=== PATIENT | female | born 1940 | race Caucasian/White ===

== ENCOUNTER 2017-06-15 11:13 | Observation (INO) ==
[2017-06-15 13:40] LABS: Basophils % 0.8 % (0.0-0.8); Eosinophils # 0.1 10*3/uL (0.0-0.87); Eosinophils % 1.2 % (0.00-10.9); Hematocrit 39.8 VOL% (35.7-47.0); Hemoglobin 13.6 GM/DL (12.0-16.0); Immature Granulocytes % 0.2 %; Immature Granulocytes Absolute 0.01 #; Lymphocytes # 1.9 10*3/uL (1.4-4.0); Mean Corpuscular HGB Conc 34.2 GM/DL (32-36); Mean Corpuscular Hemoglobin 36 PG (27-34); Mean Corpuscular Volume 104.2 FL (87-102); Mean Platelet Volume 9.9 FL (9.6-12.0); Monocytes # 0.3 10*3/uL (0.11-0.8); Monocytes % 6.2 % (1.7-12.7); Neutrophils # 2.5 10*3/uL (1.4-7.4); Neutrophils % 51.6 % (38.7-73.9); Platelet Count 221 T/CUMM (130-400); Red Blood Count 3.82 MC/CUMM (3.8-5.5); White Blood Count 4.8 T/CUMM (4-12)
[2017-06-15 13:47] LABS: INR 1.2; PT Patient Result 12.2 SECS; Partial Thromboplastin Time 30.1 SECS (0-40)
[2017-06-15 14:15] LABS: Albumin 3.6 G/DL (3.4-5.0); Bilirubin,Total 0.8 MG/DL (0.2-1.0); Calcium 8.5 MG/DL (8.5-10.1); Osmolality,Calculated 275.8 MOS/KG (273-304); Potassium 3.9 MMOL/L (3.5-5.1); Total Protein 7.1 G/DL (6.4-8.3)
[2017-06-15 14:16] LABS: Troponin I Only 0.027 NG/ML (0.00-0.045)
[2017-06-15] MEDS ORDERED: FUROSEMIDE 40 MG/4 ML VIAL IV STA (14:43)
[2017-06-15 16:19] LABS: Apearance,Urine CLEAR (Clear); Bilirubin,Urine Negative (Negative); Blood, Urine Small mg/dL (Negative); Glucose,Urine (UA) Negative (Negative); Ketones,Urine Negative (Negative); Nitrite,Urine Negative (Negative); Protein,Urine Negative; RBC,Urine <1 /HPF (0-4); Squamous Epithelial Cell,Urine Occasional /HPF (0-10); Urine Color Colorless (Yellow); Urine Specific Gravity 1.003 (1.001-1.035); Urine Urobilinogen < 2.0 EU/DL (0.2-1.0); WBC,Urine <1 /HPF (0-6)
[2017-06-15] MEDS ORDERED: ZALEPLON 5 MG CAPSULE PO PRN (17:10)
[2017-06-15] MEDS ORDERED: POTASSIUM CHLORIDE 20 MEQ TABLET PO PRN (17:10)
[2017-06-15] MEDS ORDERED: guaiFENesin/DM ER 600-30 MG TABLET PO PRN (17:10)
[2017-06-15] MEDS ORDERED: MAGNESIUM SULF RIDER 4 GM in PREMIX 1 EACH IV PRN (17:10)
[2017-06-15] MEDS ORDERED: MAGNESIUM SULF RIDER 2 GM in PREMIX 1 EACH IV PRN (17:10)
[2017-06-15] MEDS ORDERED: DOCUSATE SODIUM 100 MG CAPSULE PO PRN (17:10)
[2017-06-15] MEDS ORDERED: ONDANSETRON 4 MG/2 ML VIAL IV PRN (17:10)
[2017-06-15] MEDS ORDERED: ACETAMINOPHEN 325 MG TABLET PO PRN (17:10)
[2017-06-15] MEDS ORDERED: diphenhydrAMINE CAP 25 MG CAPSULE PO PRN (17:10)
[2017-06-15] MEDS ORDERED: LACTULOSE 20 GM/30 ML UDCUP PO PRN (17:10)
[2017-06-15] MEDS ORDERED: AMIODARONE INJ 450 MG in DEXTROSE 5% 241 ML IV SCH (17:30)
[2017-06-15 20:13] LABS: Troponin I Only 0.032 NG/ML (0.00-0.045)
[2017-06-15] MEDS: APIXABAN 5 MG TABLET PO SCH (20:47)
[2017-06-15] MEDS: FOLIC ACID 1 MG TABLET PO SCH (20:47)
[2017-06-15] MEDS: CHOLECALCIFEROL 400 UNIT TABLET PO SCH (20:47)
[2017-06-15] MEDS: FLUoxetine 20 MG CAPSULE PO SCH (20:47)
[2017-06-16] MEDS: AMIODARONE INJ 450 MG in DEXTROSE 5% 241 ML IV SCH ×2 (02:45→16:39)
[2017-06-16 05:15] LABS: Basophils # 0.1 10*3/uL (0.0-0.2); Basophils % 1.1 % (0.0-0.8); Eosinophils # 0.1 10*3/uL (0.0-0.87); Eosinophils % 1.7 % (0.00-10.9); Hematocrit 41.1 VOL% (35.7-47.0); Hemoglobin 13.3 GM/DL (12.0-16.0); Immature Granulocytes % 0.4 %; Immature Granulocytes Absolute 0.02 #; Lymphocytes # 1.9 10*3/uL (1.4-4.0); Lymphocytes % 34.3 % (21.3-54.2); Mean Corpuscular HGB Conc 32.4 GM/DL (32-36); Mean Corpuscular Hemoglobin 35 PG (27-34); Mean Corpuscular Volume 107.6 FL (87-102); Mean Platelet Volume 10.6 FL (9.6-12.0); Monocytes # 0.5 10*3/uL (0.11-0.8); Monocytes % 9.6 % (1.7-12.7); Neutrophils # 2.9 10*3/uL (1.4-7.4); Neutrophils % 52.9 % (38.7-73.9); Platelet Count 201 T/CUMM (130-400); Red Blood Count 3.82 MC/CUMM (3.8-5.5); Red Cell Distribution Width 14.1 % (9.3-17.3); White Blood Count 5.4 T/CUMM (4-12)
[2017-06-16 05:49] LABS: Calcium 8.6 MG/DL (8.5-10.1); Osmolality,Calculated 280.5 MOS/KG (273-304); Potassium 3.6 MMOL/L (3.5-5.1)
[2017-06-16] MEDS: LEVOTHYROXINE 150 MCG TABLET PO SCH ×2 (06:24→10:11)
[2017-06-16 08:50] LABS: Troponin I Only 0.031 NG/ML (0.00-0.045)
[2017-06-16] MEDS ORDERED: FUROSEMIDE 40 MG/4 ML VIAL IV SCH (09:00)
[2017-06-16] MEDS: CHOLECALCIFEROL 400 UNIT TABLET PO SCH ×2 (10:12→21:50)
[2017-06-16] MEDS: FLUoxetine 20 MG CAPSULE PO SCH ×2 (10:12→21:50)
[2017-06-16] MEDS: APIXABAN 5 MG TABLET PO SCH ×2 (10:12→21:50)
[2017-06-16] MEDS: PANTOPRAZOLE 40 MG TABLET PO SCH (10:13)
[2017-06-16] MEDS: FOLIC ACID 1 MG TABLET PO SCH ×2 (10:13→21:50)
[2017-06-16] MEDS ORDERED: MIDAZOLAM 10 MG/2 ML VIAL ONE (13:11)
[2017-06-16] MEDS ORDERED: MEPERIDINE 50 MG/1 ML VIAL ONE (13:12)
[2017-06-16] MEDS: METOPROLOL SUCCINATE XL 25 MG TABLET PO SCH (18:10)
[2017-06-16] MEDS: AMIODARONE 200 MG TABLET PO SCH (18:46)
[2017-06-17 05:01] LABS: Basophils # 0.1 10*3/uL (0.0-0.2); Basophils % 0.9 % (0.0-0.8); Eosinophils # 0.1 10*3/uL (0.0-0.87); Hematocrit 40.9 VOL% (35.7-47.0); Hemoglobin 13.7 GM/DL (12.0-16.0); Immature Granulocytes % 0.2 %; Immature Granulocytes Absolute 0.01 #; Lymphocytes # 2.2 10*3/uL (1.4-4.0); Mean Corpuscular HGB Conc 33.5 GM/DL (32-36); Mean Corpuscular Hemoglobin 35 PG (27-34); Mean Corpuscular Volume 104.3 FL (87-102); Mean Platelet Volume 10.7 FL (9.6-12.0); Monocytes # 0.6 10*3/uL (0.11-0.8); Monocytes % 10.3 % (1.7-12.7); Neutrophils # 2.5 10*3/uL (1.4-7.4); Neutrophils % 45.6 % (38.7-73.9); Platelet Count 218 T/CUMM (130-400); Red Blood Count 3.92 MC/CUMM (3.8-5.5); White Blood Count 5.4 T/CUMM (4-12)
[2017-06-17 05:37] LABS: Calcium 8.9 MG/DL (8.5-10.1); Magnesium 2.1 MG/DL (1.8-2.4); Osmolality,Calculated 277.8 MOS/KG (273-304); Potassium 3.6 MMOL/L (3.5-5.1)
[2017-06-17] MEDS: AMIODARONE INJ 450 MG in DEXTROSE 5% 241 ML IV SCH (06:20)
[2017-06-17] MEDS ORDERED: LEVOTHYROXINE 75 MCG TABLET PO SCH (06:30)
[2017-06-17 08:44] VITALS: BP 123/86
[2017-06-17] MEDS: METOPROLOL SUCCINATE XL 25 MG TABLET PO SCH (08:59)
[2017-06-17] MEDS: PANTOPRAZOLE 40 MG TABLET PO SCH (09:00)
[2017-06-17] MEDS ORDERED: FUROSEMIDE 80 MG TABLET PO SCH (09:00)
[2017-06-17] MEDS: AMIODARONE 200 MG TABLET PO SCH (09:00)
[2017-06-17] MEDS: APIXABAN 5 MG TABLET PO SCH (09:00)
== END 2017-06-17 10:50 | disposition home or self-care (01) ==
LOC: N.EDINP 11:13 → N.ED 11:13 → N.TELEN 18:39
PROVIDERS: ADMIT Internal Medicine Cardiovascular Disease; ATTEND Internal Medicine Cardiovascular Disease

== ENCOUNTER 2018-05-15 15:48 | Inpatient (IN) ==
[2018-05-15] MEDS ORDERED: PANTOPRAZOLE INJ 80 MG in SODIUM CHLORIDE 0.9% 100 ML IV STA (16:10)
[2018-05-15] MEDS ORDERED: SODIUM CHLORIDE 0.9% 2,000 ML IV STA (16:10)
[2018-05-15] MEDS ORDERED: SODIUM CHLORIDE 0.9% 1,000 ML IV PRN (16:14)
[2018-05-15 16:17] LABS: Basophils % 0.2 % (0.0-0.8); Eosinophils % 0.5 % (0.00-10.9); Hematocrit 46.4 VOL% (35.7-47.0); Hemoglobin 15.5 GM/DL (12.0-16.0); Immature Granulocytes % 0.5 %; Immature Granulocytes Absolute 0.02 #; Lymphocytes # 0.5 10*3/uL (1.4-4.0); Lymphocytes % 11.9 % (21.3-54.2); Mean Corpuscular HGB Conc 33.4 GM/DL (32-36); Mean Corpuscular Hemoglobin 35 PG (27-34); Mean Corpuscular Volume 105.5 FL (87-102); Mean Platelet Volume 10.4 FL (9.6-12.0); Monocytes # 0.4 10*3/uL (0.11-0.8); Monocytes % 8.4 % (1.7-12.7); Neutrophils # 3.4 10*3/uL (1.4-7.4); Neutrophils % 78.5 % (38.7-73.9); Platelet Count 141 T/CUMM (130-400); Red Cell Distribution Width 13.5 % (9.3-17.3); White Blood Count 4.3 T/CUMM (4-12)
[2018-05-15 16:24] LABS: INR 1.2; PT Patient Result 12.3 SECS; Partial Thromboplastin Time 24.9 SECS (0-40)
[2018-05-15] MEDS ORDERED: PANTOPRAZOLE 40 MG VIAL IV ONE (16:31)
[2018-05-15 16:35] LABS: Albumin 4.1 G/DL (3.4-5.0); Bilirubin,Total 1.2 MG/DL (0.2-1.0); Calcium 8.9 MG/DL (8.5-10.1); Osmolality,Calculated 276.1 MOS/KG (273-304); Potassium 3.7 MMOL/L (3.5-5.1); Total Protein 7.4 G/DL (6.4-8.3)
[2018-05-15] MEDS ORDERED: ALBUTEROL 2.5 MG/3 ML NEB RESP TX PRN (17:15)
[2018-05-15] MEDS ORDERED: ACETAMINOPHEN 325 MG TABLET PO PRN (17:15)
[2018-05-15] MEDS ORDERED: cefTRIAXone 1,000 MG in SODIUM CHLORIDE 0.9% 100 ML IV STA (17:21)
[2018-05-15] MEDS ORDERED: SODIUM CHLORIDE 0.9% 1,000 ML IV SCH (17:30)
[2018-05-15 18:04] LABS: Band Neutrophils 13 % (0-10); Eosinophils 1 % (0-10); Lymphocytes 13 % (20-55); Segmented Neutrophils 61 % (50-85); Total Cells Counted 100
[2018-05-15 18:05] LABS: Macrocytosis 1+
[2018-05-15 18:06] LABS: Platelet Estimate Adequate
[2018-05-15 18:07] LABS: Reactive Lymphocytes Few; Smudge Cells Few
[2018-05-15 19:25] LABS: Apearance,Urine CLEAR (Clear); Bacteria,Urine Occasional /HPF (Few); Bilirubin,Urine Negative (Negative); Blood, Urine Negative (Negative); Glucose,Urine (UA) Negative (Negative); Hyaline Casts,Urine 3 /LPF (0-3); Ketones,Urine Negative (Negative); Mucus,Urine Occasional /LPF (Occasional); Nitrite,Urine Negative (Negative); Protein,Urine Negative; RBC,Urine <1 /HPF (0-4); Squamous Epithelial Cell,Urine Occasional /HPF (0-10); Urine Color Yellow (Yellow); Urine Specific Gravity 1.008 (1.001-1.035); Urine Urobilinogen < 2.0 EU/DL (0.2-1.0)
[2018-05-15] MEDS ORDERED: AZITHROMYCIN INJ 500 MG in SODIUM CHLORIDE 0.9% 250 ML IV SCH (20:00)
[2018-05-15] MEDS ORDERED: PIPERACILLIN/TAZOBACTAM 3,375 MG in SODIUM CHLORIDE 0.9% 100 ML IV SCH (20:00)
[2018-05-15] MEDS ORDERED: FLUoxetine 20 MG CAPSULE PO SCH (21:00)
[2018-05-15] MEDS ORDERED: FOLIC ACID 0.4 MG TABLET PO SCH (21:00)
[2018-05-15] MEDS ORDERED: ASPIRIN EC 81 MG TABLET PO SCH (21:00)
[2018-05-15 21:16] LABS: Hematocrit 44.5 VOL% (35.7-47.0); Hemoglobin 14.3 GM/DL (12.0-16.0)
[2018-05-15] MEDS ORDERED: NOREPINEPHRINE 4 MG/4 ML VIAL IV ONE ×2 (21:31→21:39)
[2018-05-15] MEDS: ONDANSETRON 4 MG/2 ML VIAL IV PRN (21:38)
[2018-05-15] MEDS: PANTOPRAZOLE INJ 200 MG in SODIUM CHLORIDE 0.9% 250 ML IV SCH (22:13)
[2018-05-15] MEDS: NOREPINEPHRINE 8 MG in SODIUM CHLORIDE 0.9% 242 ML IV PRN (22:15)
[2018-05-15 22:18] LABS: ABG Base Excess -3.6 MMOL/L (-2.5-2.5); ABG HCO3 21.2 MMOL/L (20-26); ABG Oxygen Saturation 86.7 % (95-100); ABG PCO2 49.2 MM HG (35-48); ABG PH 7.291 (7.35-7.45); ABG PO2 59.9 MM HG (80-95); ABG TCO2 20.7 MMOL/L (23-27); Allen Test Positive; Pt O2 Delivery Device BIPAP
[2018-05-16] MEDS ORDERED: VANCOMYCIN INJ 1,250 MG in SODIUM CHLORIDE 0.9% 250 ML IV SCH (02:00)
[2018-05-16] MEDS: NOREPINEPHRINE 8 MG in SODIUM CHLORIDE 0.9% 242 ML IV PRN ×3 (02:30→17:56)
[2018-05-16] MEDS: ONDANSETRON 4 MG/2 ML VIAL IV PRN (04:00)
[2018-05-16 04:57] LABS: Hematocrit 42.4 VOL% (35.7-47.0); Hemoglobin 13.9 GM/DL (12.0-16.0); Lymphocytes # 0.6 10*3/uL (1.4-4.0); Lymphocytes % 37.4 % (21.3-54.2); Mean Corpuscular HGB Conc 32.8 GM/DL (32-36); Mean Corpuscular Hemoglobin 36 PG (27-34); Mean Corpuscular Volume 109.3 FL (87-102); Mean Platelet Volume 10.5 FL (9.6-12.0); Monocytes # 0.2 10*3/uL (0.11-0.8); Monocytes % 9.2 % (1.7-12.7); Neutrophils # 0.9 10*3/uL (1.4-7.4); Neutrophils % 53.4 % (38.7-73.9); Platelet Count 135 T/CUMM (130-400); Red Blood Count 3.88 MC/CUMM (3.8-5.5); Red Cell Distribution Width 13.9 % (9.3-17.3); White Blood Count 1.6 T/CUMM (4-12)
[2018-05-16 05:18] LABS: % Iron Saturation 7.5 % (18-50); Ferritin 182.9 ng/ml (8-252)
[2018-05-16 05:33] LABS: Calcium 7.2 MG/DL (8.5-10.1); Osmolality,Calculated 288.4 MOS/KG (273-304); Potassium 3.6 MMOL/L (3.5-5.1); Risk Ratio 3.15; Thyroid Stimulating Hormone 5.87 uIU/ml (0.358-3.74); VLDL CHOLESTEROL 19.6 MG/DL
[2018-05-16] MEDS: PIPERACILLIN/TAZOBACTAM 3,375 MG in SODIUM CHLORIDE 0.9% 100 ML IV SCH ×2 (05:35→12:42)
[2018-05-16 06:03] LABS: Hematocrit 44.7 VOL% (35.7-47.0); Hemoglobin 14.6 GM/DL (12.0-16.0)
[2018-05-16 06:06] LABS: Band Neutrophils 11 % (0-10); Lymphocytes 48 % (20-55); Nucleated Red Blood Cells 1 (0-5); Segmented Neutrophils 32 % (50-85); Total Cells Counted 100
[2018-05-16 06:07] LABS: Atypical Lymphocytes Few; Hypochromasia 1+; Macrocytosis Slight; Platelet Estimate Normal; Sedimentation Rate-Westergren 3 MM/HR (0-30)
[2018-05-16] MEDS ORDERED: LEVOTHYROXINE 150 MCG TABLET PO SCH (07:00)
[2018-05-16 08:15] LABS: Vitamin B12 1675 PG/ML (211-911)
[2018-05-16] MEDS ORDERED: SODIUM CHLORIDE 0.9% 500 ML IV ONE ×2 (08:25→11:02)
[2018-05-16] MEDS ORDERED: LIDOCAINE 1% 20 ML VIAL MISC INJ ONE (08:49)
[2018-05-16] MEDS ORDERED: LIDOCAINE 2% 20 ML VIAL RESP TX ONE (08:49)
[2018-05-16] MEDS ORDERED: MIDAZOLAM 2 MG/2 ML VIAL IV ONE (08:49)
[2018-05-16] MEDS ORDERED: CHOLECALCIFEROL 1,000 UNIT TABLET PO SCH (09:00)
[2018-05-16] MEDS ORDERED: FUROSEMIDE 40 MG TABLET PO SCH (09:00)
[2018-05-16] MEDS ORDERED: CYANOCOBALAMIN 500 MCG TABLET PO SCH (09:00)
[2018-05-16] MEDS ORDERED: MIDAZOLAM 10 MG/2 ML VIAL ONE (09:00)
[2018-05-16] MEDS ORDERED: cefTRIAXone 1,000 MG in SYRINGE 1 EACH IV SCH (09:00)
[2018-05-16] MEDS ORDERED: FUROSEMIDE 80 MG TABLET PO SCH (09:00)
[2018-05-16 09:20] VITALS: BP 108/69
[2018-05-16] MEDS ORDERED: DIGOXIN 0.5 MG/2 ML AMP IV ONE ×2 (09:36→18:09)
[2018-05-16] MEDS ORDERED: DIGOXIN 0.5 MG/2 ML AMP ONE (09:38)
[2018-05-16 10:04] LABS: Hemoglobin A1 (Alkaline) 97.2 % (96.5-98.5); Hemoglobin A2 (Alkaline) 2.8 % (1.5-3.5)
[2018-05-16] MEDS: MORPHINE 4 MG/1 ML VIAL IV PRN ×3 (10:28→20:31)
[2018-05-16] MEDS ORDERED: SODIUM CHLORIDE 0.9% 1,000 ML IV SCH (10:30)
[2018-05-16] MEDS ORDERED: ZINC OXIDE PASTE 113 GM TUBE TOP SCH (11:00)
[2018-05-16] MEDS ORDERED: PHENYLEPHRINE DRIP 40 MG/250 ML PREMIX IV PRN (11:19)
[2018-05-16 11:48] LABS: Hematocrit 42.6 VOL% (35.7-47.0); Hemoglobin 13.7 GM/DL (12.0-16.0)
[2018-05-16 15:23] LABS: Lactic Acid 3.3 MMOL/L (0.4-2.0)
[2018-05-16] MEDS ORDERED: NOREPINEPHRINE 16 MG in SODIUM CHLORIDE 0.9% 234 ML IV PRN (19:28)
[2018-05-16] MEDS ORDERED: PHENYLEPHRINE INJ 160 MG in SODIUM CHLORIDE 0.9% 234 ML IV PRN (19:28)
[2018-05-16] MEDS: PANTOPRAZOLE INJ 200 MG in SODIUM CHLORIDE 0.9% 250 ML IV SCH (20:44)
[2018-05-16] MEDS ORDERED: MORPHINE 4 MG/1 ML VIAL IV PRN (21:09)
[2018-05-17] MEDS ORDERED: AZITHROMYCIN 250 MG TABLET PO SCH (09:00)
[2018-05-18] MEDS ORDERED: PANTOPRAZOLE 40 MG VIAL IV SCH (21:00)
== END 2018-05-16 21:46 | disposition expired | DRG 871 ==
LOC: EDUNIT# → EDBD → N.ED 15:48 → N.EDINP 16:57 → N.ICU 18:03
PROVIDERS: ADMIT Internal Medicine; ATTEND Internal Medicine